=== PATIENT | male | born 1965 | race American Indian/Alaskan Native ===

== ENCOUNTER 2016-08-26 00:01 | Emergency (ER) | payer OTHER ==
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
[2016-08-26 03:40] VITALS: BP 132/85
== END 2016-08-26 03:40 | disposition home or self-care (01) ==
LOC: ED 00:01
DX: M54.2 Cervicalgia (principal); Z87.891 Personal history of nicotine dependence; V49.49XA Driver injured in collision with other motor vehicles in traffic accident, initial encounter; Y93.9 Activity, unspecified; Y92.9 Unspecified place or not applicable; Y99.9 Unspecified external cause status
CPT/HCPCS: 72125; 99283